=== PATIENT | male | born 2000 | race Caucasian/White ===

== ENCOUNTER 2024-11-12 16:49 | Emergency (ER) | payer OTHER, SELFPAY ==
[2024-11-12 17:27] VITALS: BP 144/63; PULSE 99; RESP 16; TEMP 36.9; O2SAT 99; BMI 32.9
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
[2024-11-12 17:49] VITALS: BP 144/63; PULSE 99; RESP 16; TEMP 36.9; O2SAT 99
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
--- OUTSIDE RECORDS SUMMARY | 2024-11-12 17:51 | XMS_ITS | Encounter Summary ---
Author Organization [employer] Address [address] [address] [place] [address] Care Team Providers Care Loader Operator Supervisor Name Role Phone Sebastian Funes MD Primary Care Provider Nikolas Peñaloza MD Primary Care Provider [phone] Reason for Visit * Reason Onset Date Comments pt call to scehedule short visit with PCP 2022 Encounter Details Date Type Department Care Team (Late st Contact Info) Description 01/30/2023 Telephone Pediatrics [address] [place] [address] Sebastain Funse MD pt call to scehedule short visit with PCP Social History Tobacco Use Types Packs/Day Years Used Date Smoking Tobacco: Never Assessed Sex and Gender Information Value Date Recorded Sex Assigned at Male 01/13/2022 5:39 PM EDT Legal Sex Male 5:39 PM EDT Gender Identity Male 01/13/2022 5:39 PM EDT Sexual Orientation Choose not to disclose 2022 1:55 PM EST documented as of this encounter Miscellaneous Notes * Telephone Encounter - Jessica Herrera - 01/30/2023 9:45 AM EST Pt called back and rs a short visit with the PCP on 02/01/23 at 1:40 pm. documented in this encounter Plan of Treatment Not on file documented as of this encounter Visit Diagnoses Not on filedocumented in this encounter Care Teams Loader Operator Supervisor Relationship Specialty Start Date End Date Sebastian Funes MD PCP - General Pediatrics 05/15/22 10/10/23 Nikolas Solomon MD [address] [place] [phone] PCP - General Pediatrics 10/11/23 documented as of this encounter
== END 2024-11-12 17:50 | disposition home or self-care (01) ==
PROVIDERS: Emergency Provider Emergency Medicine
DX: L03.011 Cellulitis of right finger (principal)
CPT/HCPCS: 99282; 99283